=== PATIENT | female | born 1955 | race Caucasian/White ===

== ENCOUNTER 2018-04-29 17:26 | Emergency (ER) | payer MEDICARE ==
--- NOTE | 2018-04-29 17:41 | Emergency Department Record ---
History of Present Illness - General Chief Complaint: Fall Injury Stated Complaint: FALL/ R HIP PAIN Source: Patient Mode of Arrival: Ambulatory Limitations: No limitations - History of Present Illness Initial Comments: 63 yo female presents to ED for evaluation following a trip and fall at [facility] just prior to arrival. Patient reports that she is approximately 6 weeks our from recent right hip fracture s/p surgical repair with Dr. Cannon. Patient denies other injury on examination, denies numbness, tingling, or focal weakness on examination. Patient denies the use of anticoagulation medications at her baseline. MD Complaint: Fall Onset/Timin -: Minutes(s) Fall From: Standing When Fall Occurred: Just prior to arrival Fall Witnessed: Yes, by family Place Fall Occurred: Other Loss of Consciousness: None Prolonged Down Time?: No Symptoms Prior to Fall: None Location - Extremities: Right: Thigh Severity: Moderate Quality: Aching Context: Tripped/slipped Associated Symptoms: Denies - [place] Coma Scale Eye Response: (4) Open spontaneously Motor Response: (6) Obeys commands Verbal Response: (5) Oriented Radha Total: 15 - Related Data Home Medications Medication Instructions Recorded Confirmed Last Taken Latanoprost 0.005% Opth Pricilla 1 drop LEFT EYE DAILY 04/29/18 04/29/18 Unknown [Xalatan] Levothyroxine Sodium 100 mcg PO DAILY 04/29/18 04/29/18 Unknown Teriparatide [Forteo] 2.4 ml SQ DAILY 04/29/18 04/29/18 Unknown Allergies Allergy/AdvReac Type Severity Reaction Status Date / Time erythromycin base AdvReac NAUSEA Verified 04/29/18 17:35 Review of Systems Constitutional: Denies: Chills, Fever, Malaise, Night sweats Eyes: Denies: Eye discharge, Eye pain ENT: Denies: Congestion, Ear pain, Epistaxis Respiratory: Denies: Cough, Dyspnea Cardiovascular: Denies: Chest pain, Dyspnea on exertion Endocrine: Denies: Fatigue, Heat or cold intolerance Gastrointestinal: Denies: Abdominal pain, Nausea, Vomiting Genitourinary: Denies: Incontinence, Retention Musculoskeletal: Reports: Arthralgia. Denies: Back pain, Gout, Joint swelling Skin: Denies: Bruising, Change in color Neurological: Denies: Abnormal gait, Confusion, Headache, Tingling, Tremors Psychiatric: Denies: Anxiety Hematological/Lymphatic: Denies: Anemia, Blood Clots Physical Exam - General General Appearance: Alert, Oriented x3, Cooperative, Mild distress, Other ( Ambulates with steady, slow gait on examination, able to weight bear.) Limitations: No limitations - Head Head exam: Atraumatic, Normocephalic, Normal inspection Head exam detail: negative: Abrasion, Contusion, De Dios's sign, General tenderness, Hematoma, Laceration - Eye Eye exam: Normal appearance. negative: Conjunctival injection, Periorbital swelling, Periorbital tenderness, Scleral icterus - ENT Ear exam: negative: Auricular hematoma, Auricular trauma Nasal Exam: negative: Active bleeding, Discharge, Dried blood, Foreign body Mouth exam: negative: Drooling, Laceration, Muffled voice, Tongue elevation - Neck Neck exam: Normal inspection. negative: Meningismus, Tenderness - Respiratory Respiratory exam: Normal lung sounds bilaterally. negative: Respiratory distress, Rhonchi, Stridor, Wheezes - Cardiovascular Cardiovascular Exam: Regular rate, Normal rhythm, Normal heart sounds - GI/Abdominal GI/Abdominal exam: Soft. negative: Distended, Rebound, Rigid, Tenderness - Rectal Rectal exam: Deferred - exam: Deferred - Extremities Extremities exam: Tenderness, Other (TTP over the proximal right femur, incision appears well healed on examination, FROM present, weight bearing on examination.). negative: Calf tenderness, Pedal edema - Back Back exam: Denies: CVA tenderness (R), CVA tenderness (L) - Neurological Neurological exam: Alert, Normal gait, Oriented X3 - Psychiatric Psychiatric exam: Normal affect. negative: Agitated - Skin Skin exam: Normal color. negative: Abrasion Course - Reevaluation(s) Reevaluation #1: 04/29/18 17:41 Patient was seen and examined, denies the need for analgesia, denies injury on examination. Will obtain radiographs of the right hip and reassess. Reevaluation #2: 04/29/18 18:34 Right hip/pelvis: Previous surgical fixation, no new fracture or abnormality identified. Patient and her SO were updated on all results, patient continues to deny the need for analgesia, ambulates with steady gait. Symptoms appear c/w contusion, patient denies other injury on re-examination. Patient appears stable for discharge at this time. Disposition Disposition: Discharge Clinical Impression: Contusion, hip Qualifiers: Encounter type: initial encounter Laterality: right Qualified Code(s): S70.01XA - Contusion of right hip, initial encounter Disposition: Home, Self-Care Condition: (2) Stable Instructions: Hip Contusion (ED) Additional Instructions: Return to ED if your symptoms worsen or if you have any concerns. Follow-up with your family doctor in 3-5 days as directed. Forms: Patient Portal Access Time of Disposition: 18:36 Quality - Quality Measures Quality Measures: N/A - Blood Pressure Screening Does Patient Have Any of the Following: No Blood Pressure Classification: Hypertensive Reading Systolic Measurement: 145 Diastolic Measurement: 75 Screening for High Blood Pressure: < First Hypertensive BP, F/U Documented > [ [id number]] First Hypertensive Follow-up Interventions: Referral to alternative/primary care provider.
--- NOTE | 2018-04-30 20:21 | RADIOLOGY REPORT ---
EXAM: HIP,UNILAT, 2-3 VIEW RIGHT HISTORY: RIGHT HIP PAIN STATUS POST FALL. TECHNIQUE: An AP view of the pelvis and AP and lateral views of the right hip were obtained to include the right intramedullary marisel. COMPARISON: None. FINDINGS: There has been previous internal fixation of a right intertrochanteric to subtrochanteric hip fracture. Two screws are present within the femur neck and an intramedullary marisel is in place and is affixed with a single screw distally. The fracture appears well healed. There is no visible acute fracture or dislocation. The bony pelvis is intact. IMPRESSION: 1. NO ACUTE HIP OR PELVIC PATHOLOGY. 2. PREVIOUS INTERNAL FIXATION OF THE RIGHT HIP. JOB NUMBER: [id number] [facility]
== END 2018-04-29 18:51 | disposition home or self-care (01) ==
LOC: ER 17:26
DX: S70.01XA Contusion of right hip, initial encounter (principal); W01.0XXA Fall on same level from slipping, tripping and stumbling without subsequent striking against object, initial encounter; Y92.512 Supermarket, store or market as the place of occurrence of the external cause
CPT/HCPCS: 99283